=== PATIENT | female | born 1975 | race African-American/Black ===

== ENCOUNTER 2018-01-04 20:49 | Emergency (ER) | payer MEDICARE, MEDICAID ==
[2018-01-04 22:46] LABS: ADD MAN DIFF? NO
[2018-01-04 22:49] LABS: WHITE BLOOD COUNT 8.1 10^3/ul (4.8-10.8)
[2018-01-04 22:49] LABS: BASOPHIL # 0.1 10^3/ul (0.0-0.1); BASOPHILS % 0.6 % (0.0-2.0); EOSINOPHILS # 0.3 10^3/ul (0.0-0.5); EOSINOPHILS % 3.5 % (0.0-7.0); HEMATOCRIT 36.2 % (37.0-47.0); HEMOGLOBIN 11.8 g/dl (12.0-16.0); LYMPHOCYTES # 3.2 10^3/ul (0.8-2.9); LYMPHOCYTES % 39.2 % (15.0-51.0); MEAN CORPUSCULAR HEMOGLOBIN 27.1 pg (29.0-33.0); MEAN CORPUSCULAR HGB CONC 32.6 g/dl (32.0-37.0); MEAN CORPUSCULAR VOLUME 83.2 fl (82.0-101.0); MEAN PLATELET VOLUME 10.8 fl (7.4-10.4); MONOCYTE # 0.5 10^3/ul (0.3-0.9); MONOCYTES % 6.2 % (0.0-11.0); NEUTROPHIL # 4.1 10^3/ul (1.6-7.5); NEUTROPHILS % 50.3 % (39.0-77.0); PLATELET COUNT 285 10^3/UL (140-415); RED BLOOD COUNT 4.35 10^6/ul (4.20-5.40)
[2018-01-04 23:37] LABS: URINE PH (Dip) POC 8.5 (5.0-8.5)
[2018-01-04 23:37] LABS: URINE BLOOD (Dip) POC 3+ (NEGATIVE); URINE GLUCOSE (Dip) POC Negative (NEGATIVE); URINE KETONES (Dip) POC Negative (NEGATIVE); URINE LEUKOCYTE EST (Dip) POC Negative (NEGATIVE); URINE NITRITE (Dip) POC Negative (NEGATIVE); URINE TOTAL PROTEIN POC 1+ (NEGATIVE)
== END 2018-01-05 00:19 | disposition home or self-care (01) ==
LOC: E/R 01-05 00:19
DX: B86 Scabies (principal); N93.9 Abnormal uterine and vaginal bleeding, unspecified
CPT/HCPCS: 76801; 76817; 81003; 84702; 85025; 86900; 86901; 99284-25

== ENCOUNTER 2018-04-10 16:47 | Emergency (ER) | payer MEDICARE, OTHER, MEDICAID ==
[2018-04-10 19:17] LABS: URINE BLOOD (Dip) POC Negative (NEGATIVE); URINE GLUCOSE (Dip) POC Negative (NEGATIVE); URINE KETONES (Dip) POC Negative (NEGATIVE); URINE LEUKOCYTE EST (Dip) POC 1+ (NEGATIVE); URINE NITRITE (Dip) POC Negative (NEGATIVE); URINE TOTAL PROTEIN POC Negative (NEGATIVE)
[2018-04-10 19:17] LABS: URINE PH (Dip) POC 6.5 (5.0-8.5)
[2018-04-10] MEDS: KETOROLAC 30 MG INJ IM (20:20)
[2018-04-11 17:27] LABS: RAPID PLASMA REAGIN NONREACTIVE (NR)
== END 2018-04-10 20:42 | disposition home or self-care (01) ==
LOC: FTE 16:47
DX: K43.9 Ventral hernia without obstruction or gangrene (principal); N76.0 Acute vaginitis; F17.210 Nicotine dependence, cigarettes, uncomplicated
CPT/HCPCS: 81003; 81025; 86592; 87591; 96372; 99284-25

== ENCOUNTER 2018-04-14 16:53 | Emergency (ER) | payer MEDICARE, OTHER ==
[2018-04-14] MEDS: AZITHROMYCIN 250 MG TAB PO (17:43)
[2018-04-14] MEDS: LORAZEPAM 1 MG TAB PO (17:43)
[2018-04-14] MEDS: LIDOCAINE 1% (MDV) 10 ML INJ INFIL (17:54)
[2018-04-14] MEDS: CEFTRIAXONE 250 MG INJ IM (17:54)
[2018-04-14 19:58] LABS: HIV 1&2 ANTIBODY NEGATIVE (NEGATIVE)
== END 2018-04-14 18:22 | disposition home or self-care (01) ==
LOC: FTE 16:53
DX: R14.0 Abdominal distension (gaseous) (principal); Z09 Encounter for follow-up examination after completed treatment for conditions other than malignant neoplasm; Z87.891 Personal history of nicotine dependence
CPT/HCPCS: 86703; 96372; 99284-25